=== PATIENT | female | born 1985 | race Caucasian/White ===

== ENCOUNTER 2018-01-09 15:52 | Emergency (ER) | payer SELFPAY ==
[2018-01-09] MEDS ORDERED: NA CHLORIDE 0.9% 1,000 ML ONE (16:12)
--- NOTE | 2018-01-09 16:22 | RAD REPORT ---
EXAM DESCRIPTION: CT - Head Brain Wo Cont - 01/09/2018 4:10 pm CLINICAL HISTORY: SEIZURE COMPARISON: HEAD BRAIN W O CONTRAST dated 01/17/2015 TECHNIQUE: All CT scans are performed using dose optimization technique as appropriate and may inclu de automated exposure control or mA/KV adjustment according to patient size. FINDINGS: No intracranial hemorrhage, hydrocephalus or extra-axial fluid collection.No areas of brai n edema or evidence of midline shift. The paranasal sinuses and mastoids are clear. The calvarium is intact. IMPRESSION: No acute intracranial abnormality.
[2018-01-09 16:39] LABS: Absolute Lymphocytes (CBC) 2.1 K/uL (0.7-4.9); Absolute Monocytes 0.6 K/uL (0.1-1.3); Absolute Neutrophil 7.1 K/uL (1.8-8.0); Basophils % 0.5 % (0-1.3); Eosinophils % 0.4 % (0-4.4); Hematocrit 35.1 % (36.0-45.0); Lymphocytes % 21.1 % (15.3-44.8); MCH 28.5 pg (27.0-35.0); MCV 86.1 fL (80-100); MPV 8.4 fL (7.6-11.3); Monocytes % 5.7 % (3.3-12.3); RBC Red Blood Cell Count 4.07 M/uL (3.86-4.86)
--- NOTE | 2018-01-09 16:43 | EDPHYS ---
Physician Documentation [facility] Name: Sonia Wray Age: 32 yrs Sex: Female : 1985 Arrival Date: 01/09/2018 Time: 15:53 Bed 16 Private MD: ED Physician Bobby Miner HPI: 01/09 15:59 This 32 yrs old Female presents to ER via Ambulatory with complaints of Drug pm1 Abuse and Seizure. 15:59 The patient presents after having a single isolated seizure, the episode(s) was pm1 witnessed, by family, mother. Character of seizure(s): Motor activity: according to EMS report from mother generalized shaking. Seizure onset: just prior to arrival. Context: the seizure(s) was witnessed, by family, mother, occurred at home, occurred while the patient was While smoking cush. Contributing factors: suspected or documented drug use. Seizure Hx: related to prior drug use, cush. Associated injury: The patient did not suffer any apparent associated injury. EMS care: none, because patient refused care from the EMS. Police were present at the seen and the patient was given the option to go to the ER or go to penitentiary. Patient chose to come to the ER. Current symptoms: Currently, the patient is not experiencing any symptoms, the patient feels back to baseline. The patient has experienced similar episodes in the past, multiple times. The patient has not recently seen a physician. 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 - Social history:: Smoking status: Patient/guardian denies using tobacco, Patient uses street drugs, marijuana. - Ebola Screening: : Patient negative for fever greater than or equal to 101.5 degrees Fahrenheit, and additional compatible Ebola Virus Disease symptoms Patient denies exposure to infectious person Patient denies travel to an Ebola-affected area in the 21 days before illness onset. ROS: 16:10 Constitutional: Negative for fever, chills, and weight loss, Eyes: Negative for injury, pm1 pain, redness, and discharge, ENT: Negative for injury, pain, and discharge, Neck: Negative for injury, pain, and swelling, Cardiovascular: Negative for chest pain, palpitations, and edema, Respiratory: Negative for shortness of breath, cough, wheezing, and pleuritic chest pain, Abdomen/GI: Negative for abdominal pain, nausea, vomiting, diarrhea, and constipation, Back: Negative for injury and pain, : Negative for injury, bleeding, discharge, and swelling, MS/Extremity: Negative for injury and deformity, Skin: Negative for injury, rash, and discoloration. 16:10 Neuro: Positive for seizure activity, Negative for altered mental status, dizziness, numbness, tingling, visual changes, weakness. Exam: 16:10 Constitutional: This is a well developed, well nourished patient who is awake, alert, pm1 and in no acute distress. Head/Face: Normocephalic, atraumatic. Eyes: Pupils equal round and reactive to light, extra-ocular motions intact. Lids and lashes normal. Conjunctiva and sclera are non-icteric and not injected. Cornea within normal limits. Periorbital areas with no swelling, redness, or edema. ENT: Nares patent. No nasal discharge, no septal abnormalities noted. Tympanic membranes are normal and external auditory canals are clear. Oropharynx with no redness, swelling, or masses, exudates, or evidence of obstruction, uvula midline. Mucous membranes moist. Neck: Trachea midline, no thyromegaly or masses palpated, and no cervical lymphadenopathy. Supple, full range of motion without nuchal rigidity, or vertebral point tenderness. No Meningismus. Chest/axilla: Normal chest wall appearance and motion. Nontender with no deformity. No lesions are appreciated. Cardiovascular: Regular rate and rhythm with a normal S1 and S2. No gallops, murmurs, or rubs. Normal PMI, no JVD. No pulse deficits. Respiratory: Lungs have equal breath sounds bilaterally, clear to auscultation and percussion. No rales, rhonchi or wheezes noted. No increased work of breathing, no retractions or nasal flaring. Abdomen/GI: Soft, non-tender, with normal bowel sounds. No distension or tympany. No guarding or rebound. No evidence of tenderness throughout. Back: No spinal tenderness. No costovertebral tenderness. Full range of motion. Skin: Warm, dry with normal turgor. Normal color with no rashes, no lesions, and no evidence of cellulitis. MS/ Extremity: Pulses equal, no cyanosis. Neurovascular intact. Full, normal range of motion. 16:10 Neuro: Orientation: is normal, Mentation: is normal, Cranial nerves: CN II- XII are normal as tested, Cerebellar function: normal finger to nose testing, Motor: moves all fours, Gait: is steady, at a normal pace, without difficulty. Vital Signs: 16:01 BP 127 / 96; Pulse 120; Resp 18; Pulse Ox 98% on R/A; Weight 45.36 kg; Height 5 ft. 2 cc3 in. (157.48 cm); Pain 0/10; 16:46 BP 125 / 92; Pulse 79; Resp 18; Pulse Ox 100% on R/A; cc3 16:01 Body Mass Index 18.29 (45.36 kg, 157.48 cm) cc3 MDM: 15:54 Patient medically screened. rn 16:39 Data reviewed: vital signs. Data interpreted: Pulse oximetry: on room air is 98 %. pm1 Interpretation: normal. 16:41 Refusal of service: The patient/guardian displays adequate decision making capability pm1 and despite a detailed discussion of alternatives, benefits, risks, and consequences refuses: Admission to the hospital for further work-up and treatment, Patient does not want to wait for any of the lab results. Patient wants to go home with her mother now. 01/09 15:57 Order name: CBC with Diff; Complete Time: 16:45 pm1 01/09 15:57 Order name: CMP; Complete Time: 17:47 pm1 01/09 15:57 Order name: EKG; Complete Time: 15:57 pm1 01/09 15:57 Order name: UDS pm1 01/09 15:58 Order name: CT Head Brain wo Cont; Complete Time: 16:32 pm1 01/09 15:57 Order name: IV Saline Lock; Complete Time: 16:26 pm1 01/09 15:57 Order name: EKG - Nurse/Tech; Complete Time: 16:27 pm1 01/09 15:57 Order name: Urine Dipstick-Ancillary (obtain specimen); Complete Time: 16:41 pm1 01/09 15:57 Order name: Urine Test (obtain specimen); Complete Time: 16:41 pm1 Administered Medications: Discontinued: NS 0.9% 1000 ml IV at 1000 ml once 16:15 Drug: NS 0.9% 1000 ml Route: IV; Rate: 1000 ml; Site: left antecubital; cc3 Disposition: 17:16 Co-signature as Attending Physician, Bobby Miner MD. rn Disposition: 01/09/18 16:43 Discharged to Home. Impression: Epilepsy and recurrent seizures, Drug abuse - synthetic marijuana. - Condition is Stable. - Discharge Instructions: Cannabis Use Disorder, Seizure, Adult, [id number], What You Need To Know About Illegal Drug Use and Dependence, Youth. - Medication Reconciliation Form, Thank You Letter form. - Follow up: Emergency Department; When: As needed; Reason: Worsening of condition. Follow up: Private Physician; When: 2 - 3 days; Reason: Recheck today's complaints, Continuance of care, Re-evaluation by your physician. - Problem is new. - Symptoms have improved. Signatures: Dispatcher [employer] EDNY Bobby Miner MD MD rn Smirch, Shelby, RN RN ss Armand Purdy, DOOR WORKER DOOR WORKER pm1 Radha Price cc3 Corrections: (The following items were deleted from the chart) 16:49 16:43 01/09/2018 16:43 Discharged to Home. Impression: Epilepsy and recurrent seizures; ss Drug abuse - synthetic marijuana. Condition is Stable. Forms are Medication Reconciliation Form, Thank You Letter, Antibiotic Education, Prescription Opioid Use. Follow up: Emergency Department; When: As needed; Reason: Worsening of condition. Follow up: Private Physician; When: 2 - 3 days; Reason: Recheck today's complaints, Continuance of care, Re-evaluation by your physician. Problem is new. Symptoms have improved. pm1
--- NOTE | 2018-01-09 16:43 | ER ---
Nurse's Notes [facility] Name: Sonia Wray Age: 32 yrs Sex: Female : 1985 Arrival Date: 01/09/2018 Time: 15:53 Bed 16 Private MD: Diagnosis: Epilepsy and recurrent seizures;Drug abuse - synthetic marijuana Presentation: 01/09 15:54 Presenting complaint: EMS states: family member called EMS for pt who was known to have cc3 used synthetic marijuana and per family report had an incident of new onset seizure; V/S stable and pt was A\\T\\Ox4 on arrival;. Transition of care: patient was not received from another setting of care. Onset of symptoms was January 09, 2018. Risk Assessment: Do you want to hurt yourself or someone else? Patient reports no desire to harm self or others. Initial Sepsis Screen: Does the patient meet any 2 criteria? No. Patient's initial sepsis screen is negative. Does the patient have a suspected source of infection? No. Patient's initial sepsis screen is negative. Care prior to arrival: None. 15:54 Method Of Arrival: Ambulatory cc3 15:54 Acuity: JUDITH 3 cc3 Triage Assessment: 15:58 General: Appears in no apparent distress. uncomfortable, slender, unkempt, Behavior is cc3 agitated, crying, uncooperative. General: states" i dont care". Pain: Denies pain. EENT: No signs and/or symptoms were reported regarding the EENT system. Neuro: Level of Consciousness is awake, alert, obeys commands, Oriented to person, place, time, situation, Appropriate for age. Cardiovascular: Heart tones S1 S2 Capillary refill < 3 seconds Patient's skin is warm and dry. Rhythm is sinus tachycardia. Respiratory: Airway is patent Respiratory effort is even, unlabored, Respiratory pattern is regular, symmetrical. GI: No signs and/or symptoms were reported involving the gastrointestinal system. : No signs and/or symptoms were reported regarding the genitourinary system. Derm: No signs and/or symptoms reported regarding the dermatologic system. Musculoskeletal: No signs and/or symptoms reported regarding the musculoskeletal system. MANAGER PRIVATE: 16:04 LMP 01/09/2018 cc3 Historical: - Allergies: 15:57 Unable to obtain; cc3 - Home Meds: 15:57 Unable to obtain [Active]; cc3 - PMHx: 15:57 Unable to obtain; cc3 - PSHx: 15:57 Unable to obtain; cc3 - Immunization history:: Adult Immunizations unknown. - Social history:: Smoking status: Patient/guardian denies using tobacco, Patient uses street drugs, marijuana. - Ebola Screening: : Patient negative for fever greater than or equal to 101.5 degrees Fahrenheit, and additional compatible Ebola Virus Disease symptoms Patient denies exposure to infectious person Patient denies travel to an Ebola-affected area in the 21 days before illness onset. Screenin:58 Abuse screen: Denies threats or abuse. Denies injuries from another. Nutritional cc3 screening: No deficits noted. Tuberculosis screening: No symptoms or risk factors identified. Fall Risk None identified. Assessment: 16:25 General: see triage assessment. cc3 16:47 Reassessment: Pt not willing to stay for rest of test results. Pt is upset, tearful ss stating, "I just don't want to even fuing being here right now!". Vital Signs: 16:01 BP 127 / 96; Pulse 120; Resp 18; Pulse Ox 98% on R/A; Weight 45.36 kg; Height 5 ft. 2 cc3 in. (157.48 cm); Pain 0/10; 16:46 BP 125 / 92; Pulse 79; Resp 18; Pulse Ox 100% on R/A; cc3 16:01 Body Mass Index 18.29 (45.36 kg, 157.48 cm) cc3 ED Course: 15:53 Patient arrived in ED. cc3 15:54 Bobby Miner MD is Attending Physician. rn 15:55 Armand Purdy NP is PHCP. pm1 15:57 Triage completed. cc3 16:00 Arm band placed on right wrist. cc3 16:01 Patient has correct armband on for positive identification. Bed in low position. Call cc3 light in reach. 16:02 Radha Price is Primary Nurse. cc3 16:10 CT Head Brain wo Cont In Process Unspecified. EDMS 16:15 Inserted saline lock: 22 gauge in left antecubital area, using aseptic technique. Blood cc3 collected. 16:26 EKG done, by survey technician. reviewed by Armand Purdy NP. sm3 16:47 No provider procedures requiring assistance completed. Patient did not have IV access ss during this emergency room visit. Administered Medications: Discontinued: NS 0.9% 1000 ml IV at 1000 ml once 16:15 Drug: NS 0.9% 1000 ml Route: IV; Rate: 1000 ml; Site: left antecubital; cc3 Outcome: 16:43 Discharge ordered by MD. pm1 16:47 Discharged to home ambulatory. ss 16:47 Condition: good 16:47 Discharge instructions given to patient, Instructed on discharge instructions, follow up and referral plans. Demonstrated understanding of instructions, follow-up care. 16:49 Patient left the ED. ss Signatures: Dispatcher [employer] EDMS Bobby Miner MD MD rn Smirch, Shelby, RN RN ss Marinas, Patrick, BRAD HYPERION ADMINISTRATOR pm1 Delaney Evans 3 Radha Price cc3
[2018-01-09 16:48] LABS: ALT/SGPT 80 U/L (12-78); AST/SGOT 59 U/L (15-37); Albumin 3.3 g/dL (3.4-5.0); Alkaline Phosphatase 104 U/L (45-117); BUN Blood Urea Nitrogen 11 mg/dL (7-18); Bicarbonate 26 mmol/L (21-32); Bilirubin Total 0.3 mg/dL (0.2-1.0); Glucose Level 103 mg/dL (74-106); Potassium 3.7 mmol/L (3.5-5.1); Protein, Total 6.8 g/dL (6.4-8.2); Sodium Level 140 mmol/L (136-145)
[2018-01-09 17:47] LABS: Barbiturates NEGATIVE (NEGATIVE); Benzodiazepines NEGATIVE (NEGATIVE); Cocaine NEGATIVE (NEGATIVE); METHAMPHETAM NEGATIVE (NEGATIVE); Methadone NEGATIVE (NEGATIVE); Opiates NEGATIVE (NEGATIVE); Phencyclidine NEGATIVE (NEGATIVE); THC Cannibis POSITIVE (NEGATIVE)
--- NOTE | 2018-01-10 07:21 | EKG ---
Test Date: 2018-01-09 Test Time: 16:16:26 Film Library Clerk: JOSE CARLOS MEASUREMENT RESULTS: Intervals: Rate: 85 AR: 128 QRSD: 80 QT: 338 QTc: 402 [place]: P: 81 AR: 128 QRS: 81 T: 44 INTERPRETIVE STATEMENTS: Normal sinus rhythm Normal ECG Compared to ECG 01/17/2015 07:59:59 ST (T wave) deviation no longer present Possible ischemia no longer present Electronically Signed On 01-10-18 07:20:25 CDT by Vadim Gallegos
== END 2018-01-09 16:49 | disposition home or self-care (01) ==
LOC: ER 15:52
DX: F12.10 Cannabis abuse, uncomplicated (principal); Z72.0 Tobacco use
CPT/HCPCS: 36415; 70450; 80053; 80307; 85025; 93005; 99284; J7030

== ENCOUNTER 2023-01-15 11:17 | Emergency (ER) | payer SELFPAY ==
[2023-01-15] MEDS ORDERED: ONDANSETRON 4 MG/2 ML VIAL ONE (11:51)
[2023-01-15] MEDS ORDERED: NA CHLORIDE 0.9% 1,000 ML ONE (11:51)
[2023-01-15] MEDS ORDERED: MORPHINE 4 MG/ML SYR ONE (11:51)
[2023-01-15 12:04] LABS: Specific Gravity 1.016 (1.005-1.030)
[2023-01-15 12:05] LABS: Absolute Lymphocytes (CBC) 4.2 K/uL (0.7-4.9); Hematocrit 40.2 % (36.0-45.0); Lymphocytes % 36.4 % (15.3-44.8); MPV 9.1 fL (7.6-11.3); Platelets 303 thou/uL (152-406); RBC Red Blood Cell Count 4.84 M/uL (3.86-4.86)
[2023-01-15 12:08] LABS: Specific Gravity 1.016 (1.005-1.030); Urine Bacteria >50 /HPF (<20); Urine Bilirubin NEGATIVE (Negative); Urine Blood Negative (Negative); Urine Clarity Extremely Turbid (Clear); Urine Color Yellow (Yellow); Urine Glucose NEGATIVE (Negative); Urine Mucus Slight /HPF (None Seen); Urine Protein TRACE (Negative); Urine RBC <5 /HPF (None Seen); Urine Urobilinogen Normal (Normal)
--- NOTE | 2023-01-15 12:20 | RAD REPORT ---
EXAM DESCRIPTION: Sunitha Single View01/15/2023 11:59 am CLINICAL HISTORY: CHEST PAIN COMPARISON: 04/30/2013 TECHNIQUE: Portable AP view of the chest. FINDINGS: The lungs are clear. No pneumothorax or effusion. The cardiomediastinal contours are unre markable. IMPRESSION: No acute cardiopulmonary process.
[2023-01-15 12:23] LABS: Bilirubin Direct 0.2 mg/dL (0-0.2); Bilirubin Indirect, Calculated 0.3 mg/dL (0.2-0.8); Bilirubin Total 0.5 mg/dL (0.2-1.0); Magnesium 1.9 mg/dL (1.6-2.4); Potassium 3.3 mEq/L (3.5-5.1); Protein, Total 7.8 g/dL (6.4-8.2); Troponin High Sensitivity 3.9 pg/mL (<58.9)
[2023-01-15 12:30] LABS: Protime INR 1.05
[2023-01-15] MEDS ORDERED: KETOROLAC 30 MG/ML INJ ONE (13:02)
[2023-01-15] MEDS ORDERED: DIAZEPAM 10 MG/2 ML INJ SYRINGE ONE (13:02)
--- NOTE | 2023-01-15 14:16 | RAD REPORT ---
EXAM DESCRIPTION: CT - Chest For Pe Angio - 01/15/2023 1:47 pm CLINICAL HISTORY: CHEST PAIN COMPARISON: No comparisons TECHNIQUE: Thin axial CT images of the chest were obtained following administration of 90 mL Isovue 370 IV contrast. Multiplanar reconstructions, and maximum intensity projection reconstructions were g enerated and reviewed. Exam utilizes a protocol for optimal evaluation of pulmonary arterial tree. All CT scans are performed using dose optimization technique as appropriate and may include automated exposure control or mA/KV adjustment according to patient size. FINDINGS: Pulmonary arteries are normal. No emboli or other suspicious finding. No acute or signific ant aorta findings. No mass or infiltrate in the lung parenchyma. Exclusion of the posterior costophrenic angles bilatera lly limits evaluation. Triangular subpleural right middle lobe 6 millimeter nodule on axial image 43. No pleural thickening or pleural effusion. No pneumothorax. Mild cardiomegaly. No abnormal mediastinal or hilar masses or lymphadenopathy seen. No chest wall mas s or abnormal axilliary lymphadenopathy. IMPRESSION: No evidence of acute central pulmonary emboli. No other acute findings. 6 millimeter right middle lobe nodule is probably benign given size and morphology.
[2023-01-15] MEDS ORDERED: POTASSIUM 25 MEQ EFFERV TAB ONE (14:49)
[2023-01-15] MEDS ORDERED: BISACODYL 10 MG RECTAL SUPP ONE ×2 (14:50→16:00)
--- NOTE | 2023-01-15 15:38 | EDPHYS ---
Physician Documentation [facility] Name: Sonia Wray Age: 37 yrs Sex: Female : 1985 Arrival Date: 01/15/2023 Time: 11:17 Bed 13 Private MD: Ilya Montalvo HPI: 01/15 11:40 This 37 yrs old Female presents to ER via Ambulatory with complaints of Left rib pain. 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 - Social history:: Smoking status: Patient reports the use of cigarette tobacco products, smokes one pack cigarettes per day. Reported history of juuling and/or vaping. ROS: 11:45 Constitutional: Negative for body aches, chills, fever, poor PO intake. cp 11:45 Eyes: Negative for injury, pain, redness, and discharge. cp 11:45 Cardiovascular: Positive for chest pain, of the left lateral lower chest, Negative for edema, palpitations. 11:45 Respiratory: Positive for cough, Negative for sputum production, wheezing. Exam: 11:50 Constitutional: The patient appears in no acute distress, alert, awake, cp non-diaphoretic, non-toxic, well developed, well nourished, in obvious pain, uncomfortable. 11:50 Head/Face: Normocephalic, atraumatic. cp 11:50 Eyes: Periorbital structures: appear normal, Conjunctiva: normal, no exudate, no cp injection, Sclera: no appreciated abnormality, Lids and lashes: appear normal, bilaterally. 11:50 ENT: External ear(s): are unremarkable, Nose: is normal, Mouth: Lips: moist, Oral mucosa: pink and intact, moist, Posterior pharynx: is normal, airway is patent, no erythema, no exudate. 11:50 Neck: C-spine: vertebral tenderness, is not appreciated, crepitus, is not appreciated, cp ROM/movement: is normal, is supple, without pain, no range of motions limitations, no nuchal rigidity. 11:50 Chest/axilla: Inspection: normal, Palpation: crepitus, is not appreciated, tenderness, that is moderate, of the left lateral lower chest. 11:50 Cardiovascular: Rate: normal, Rhythm: regular, Edema: is not appreciated, JVD: is not appreciated. 11:50 Respiratory: the patient does not display signs of respiratory distress, Respirations: normal, no use of accessory muscles, no retractions, labored breathing, is not present, Breath sounds: are clear throughout, no decreased breath sounds, no stridor, no wheezing. 11:50 Abdomen/GI: Inspection: abdomen appears normal, Bowel sounds: active, all quadrants, cp Palpation: soft, in all quadrants, mild abdominal tenderness, in the left upper quadrant, rebound tenderness, is not appreciated, involuntary guarding, is not appreciated. 11:50 Back: CVA tenderness, is absent. 11:50 Skin: cellulitis, is not appreciated, no rash present. 11:50 Neuro: Orientation: to person, place \T\ time. Mentation: is normal, Motor: moves all fours, strength is normal. 11:55 ECG was reviewed by the Attending Physician. Vital Signs: 11:30 BP 127 / 52; Pulse 64; Resp 18; Pulse Ox 100% on R/A; ld1 11:30 BP 127 / 52; Pulse 62; Resp 24; Temp 98.3; Pulse Ox 100% ; Weight 52.16 kg; Height 5 jl7 ft. 2 in. ; Pain 10/10; 13:21 BP 116 / 61; Pulse 59; Resp 18; Pulse Ox 100% on R/A; ld1 14:17 BP 90 / 45; Pulse 41; Resp 18; Pulse Ox 100% on R/A; ld1 15:01 BP 92 / 50; Pulse 43; Resp 18; Pulse Ox 99% on R/A; ld1 11:30 Body Mass Index 21.03 (52.16 kg, 157.48 cm) [facility] 11:30 Pain Scale: Adult jl7 MDM: 11:30 Patient medically screened. 15:36 Data reviewed: vital signs, nurses notes, lab test result(s), EKG, radiologic studies, cp CT scan, plain films. 15:36 Differential diagnosis: abnormal EKG, acute myocardial infarction, acute pericarditis, cp chest wall pain, costochondritis, pericarditis, pleurisy, pneumonia, pneumothorax, pulmonary embolus, stable angina, unstable angina. I considered the following discharge prescriptions or medication management in the emergency department Medications were administered in the Emergency Department. See MAR. Counseling: I had a detailed discussion with the patient and/or guardian regarding the historical points, exam findings, and any diagnostic results supporting the discharge/admit diagnosis, lab results, radiology results, to return to the emergency department if symptoms worsen or persist or if there are any questions or concerns that arise at home. Response to treatment: the patient's symptoms have markedly improved after treatment, and as a result, I will discharge patient. Special discussion: Based on the patient's history, exam, and Dx evaluation, there is no indication for emergent intervention or inpatient Tx. It is understood by the patient/guardian that if the Sx's persist or worsen they need to return immediately for re-evaluation. 01/15 11:36 Order name: Basic Metabolic Panel; Complete Time: 12:24 01/15 12:24 Interpretation: Normal except: K 3.3; CL 108; GFR 86. cp 01/15 11:36 Order name: CBC with Diff; Complete Time: 12:24 cp 01/15 12:24 Interpretation: Normal except: WBC 11.60; RDW 17.2. cp 01/15 11:36 Order name: D-Dimer; Complete Time: 14:27 cp 01/15 11:36 Order name: LFT's; Complete Time: 12:24 cp 01/15 12:24 Interpretation: Normal except: GLOB 3.8. cp 01/15 11:36 Order name: Magnesium; Complete Time: 12:24 cp 01/15 11:36 Order name: PT-INR; Complete Time: 14:27 cp 01/15 11:36 Order name: Troponin HS; Complete Time: 12:24 cp 01/15 11:36 Order name: PREGU; Complete Time: 12:24 cp 01/15 11:36 Order name: Urinalysis W/Microscopic; Complete Time: 12:24 cp 01/15 12:25 Interpretation: Normal except: UKET 1+; UPROT TRACE; UBACT >50; SQEPI 20-50. cp 01/15 11:36 Order name: XRAY Chest (1 view); Complete Time: 12:24 cp 01/15 12:42 Order name: CT Chest For PE Angio; Complete Time: 14:27 cp 01/15 14:28 Interpretation: Report reviewed. 01/15 11:36 Order name: EKG; Complete Time: 11:37 cp 01/15 11:36 Order name: Cardiac monitoring; Complete Time: 11:38 cp 01/15 11:36 Order name: EKG - Nurse/Tech; Complete Time: 11:54 cp 01/15 11:36 Order name: IV Saline Lock; Complete Time: 11:54 cp 01/15 11:36 Order name: Labs collected and sent; Complete Time: 11:54 cp 01/15 11:36 Order name: O2 Per Protocol; Complete Time: 11:38 cp 01/15 11:36 Order name: O2 Sat Monitoring; Complete Time: 11:38 EC:55 Rate is 63 beats/min. Rhythm is regular. NE interval is shortened at 104 msec. QRS cp interval is normal. QT interval is normal. T waves are Inverted in lead aVR. Interpreted by me. Reviewed by me. Administered Medications: 11:54 Drug: NS 0.9% IV 1000 ml Route: IV; Rate: 1 bolus; Site: right antecubital; ld1 11:54 Drug: morphine IVP or IV 4 mg Route: IVP; Infused Over: 4 mins; Site: right antecubital;ld1 11:54 Drug: Ondansetron IVP 4 mg Route: IVP; Site: right antecubital; ld1 12:58 Drug: Ketorolac IVP 15 mg Route: IVP; Site: right antecubital; ld1 12:58 Drug: Diazepam IVP 2 mg Route: IVP; Site: right antecubital; ld1 14:42 Drug: Potassium PO Effervescent Tablet 50 mEq Route: PO; ld1 Disposition Summary: 01/15/23 15:37 Discharge Ordered Location: Home cp Problem: new cp Symptoms: have improved cp Condition: Stable cp Diagnosis - Chest pain, unspecified cp Followup: cp - With: Private Physician - When: 2 - 3 days - Reason: Recheck today's complaints Discharge Instructions: - Discharge Summary Sheet cp - Nonspecific Chest Pain, Adult cp Forms: - Medication Reconciliation Form cp - Thank You Letter cp - Antibiotic Education cp - Prescription Opioid Use cp - Patient Portal Instructions cp - Leadership Thank You Letter cp Prescriptions: - Cyclobenzaprine 10 mg Oral Tablet - take 1 tablet by ORAL route every 8 hours As needed; 30 tablet; Refills: 0, cp Product Selection Permitted - Diclofenac Sodium 75 mg Oral tablet,delayed release (DR/EC) - take 1 tablet by ORAL route 2 times per day; 20 tablet; Refills: 0, Product cp Selection Permitted Signatures: Dispatcher [employer] EDMS Ilya Dominguez PA PA cp Leal, Jahala RN RN jl7 Jessie Chirinos RN RN ld1 Corrections: (The following items were deleted from the chart) 11:32 11:32 Allergies: Unable to obtain; jl7 jl7 15:39 15:37 Pleurisy cp cp 01/16 14:45 08 11:50 Constitutional: The patient appears in no acute distress, alert, awake, cp non-diaphoretic, non-toxic, well developed, well nourished, cp
--- NOTE | 2023-01-15 15:38 | ER ---
Nurse's Notes [facility] Name: Sonia Wray Age: 37 yrs Sex: Female : 1985 Arrival Date: 01/15/2023 Time: 11:17 Bed 13 Private MD: Diagnosis: Chest pain, unspecified Presentation: 01/15 11:30 Chief complaint: Patient states: Left rib pain, worse with deep breath, recent jl7 non-productive cough, denies fever. Coronavirus screen: Client presents with at least one sign or symptom that may indicate coronavirus-19. Ebola Screen: No symptoms or risks identified at this time. Initial Sepsis Screen: Does the patient meet any 2 criteria? No. Patient's initial sepsis screen is negative. Does the patient have a suspected source of infection? No. Patient's initial sepsis screen is negative. Risk Assessment: Do you want to hurt yourself or someone else? Patient reports no desire to harm self or others. Onset of symptoms was January 15, 2023. 11:30 Method Of Arrival: [facility] 11:30 Acuity: JUDITH 3 jl7 Triage Assessment: 11:32 General: Appears in no apparent distress. uncomfortable, Behavior is cooperative, jl7 anxious. Pain: Complains of pain in left lateral posterior chest and left lateral anterior chest Pain currently is 10 out of 10 on a pain scale. 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 - Social history:: Smoking status: Patient reports the use of cigarette tobacco products, smokes one pack cigarettes per day. Reported history of juuling and/or vaping. Screenin:[facility] ED Fall Risk Assessment (Adult) History of falling in the last 3 months, ld1 including since admission No falls in past 3 months (0 pts). Abuse screen: Denies threats or abuse. Denies injuries from another. Nutritional screening: No deficits noted. Tuberculosis screening: No symptoms or risk factors identified. Assessment: 11:55 General: Appears in no apparent distress. uncomfortable, Behavior is anxious, crying, ld1 fussy. Pain: Complains of pain in left lateral anterior chest and left lateral posterior chest and chest Pain does not radiate. Pain currently is 10 out of 10 on a pain scale. Quality of pain is described as sharp, shooting, throbbing, Pain began suddenly. Neuro: Level of Consciousness is awake, alert, obeys commands, Oriented to person, place, time, situation. Cardiovascular: Capillary refill < 3 seconds Patient's skin is warm and dry. Rhythm is sinus rhythm. Respiratory: Airway is patent Respiratory effort is even, unlabored. GI: Abdomen is flat, non-distended. : No signs and/or symptoms were reported regarding the genitourinary system. EENT: No signs and/or symptoms were reported regarding the EENT system. Derm: No signs and/or symptoms reported regarding the dermatologic system. Musculoskeletal: No signs and/or symptoms reported regarding the musculoskeletal system. Vital Signs: 11:30 BP 127 / 52; Pulse 64; Resp 18; Pulse Ox 100% on R/A; ld1 11:30 BP 127 / 52; Pulse 62; Resp 24; Temp 98.3; Pulse Ox 100% ; Weight 52.16 kg; Height 5 jl7 ft. 2 in. ; Pain 10/10; 13:21 BP 116 / 61; Pulse 59; Resp 18; Pulse Ox 100% on R/A; ld1 14:17 BP 90 / 45; Pulse 41; Resp 18; Pulse Ox 100% on R/A; ld1 15:01 BP 92 / 50; Pulse 43; Resp 18; Pulse Ox 99% on R/A; ld1 11:30 Body Mass Index 21.03 (52.16 kg, 157.48 cm) jl7 11:30 Pain Scale: Adult jl7 ED Course: 11:17 Patient arrived in ED. rg4 11:20 Ilya Dominguez PA is PHCP. cp 11:20 Ilya Gama MD is Attending Physician. cp 11:29 Jessie Chirinos, KELLY is Primary Nurse. ld1 11:32 Triage completed. jl7 11:32 Arm band placed on right wrist. jl7 11:54 Urinalysis W/Microscopic Sent. ld1 11:54 PREGU Sent. ld1 11:55 Patient has correct armband on for positive identification. Placed in gown. Bed in low ld1 position. Call light in reach. Side rails up X2. media monitor on. Pulse ox on. NIBP on. Door closed. Noise minimized. Warm blanket given. 11:55 No provider procedures requiring assistance completed. Inserted saline lock: 20 gauge ld1 in right antecubital area, using aseptic technique. Blood collected. 12:00 XRAY Chest (1 view) In Process Unspecified. EDMS 13:48 CT Chest For PE Angio In Process Unspecified. EDMS 15:58 IV discontinued, intact, bleeding controlled, No redness/swelling at site. ld1 Administered Medications: 11:54 Drug: NS 0.9% IV 1000 ml Route: IV; Rate: 1 bolus; Site: right antecubital; ld1 11:54 Drug: morphine IVP or IV 4 mg Route: IVP; Infused Over: 4 mins; Site: right antecubital;ld1 11:54 Drug: Ondansetron IVP 4 mg Route: IVP; Site: right antecubital; ld1 12:58 Drug: Ketorolac IVP 15 mg Route: IVP; Site: right antecubital; ld1 12:58 Drug: Diazepam IVP 2 mg Route: IVP; Site: right antecubital; ld1 14:42 Drug: Potassium PO Effervescent Tablet 50 mEq Route: PO; ld1 Medication: 11:55 VIS not applicable for this client. ld1 Outcome: 15:37 Discharge ordered by MD. cp 15:58 Discharged to home ambulatory, with family. ld1 15:58 Condition: stable 15:58 Discharge instructions given to patient, family, Instructed on discharge instructions, follow up and referral plans. medication usage, Demonstrated understanding of instructions, follow-up care, medications, Prescriptions given X 2. 15:58 Patient left the ED. ld1 Signatures: Dispatcher [employer] EDMS Ilya Dominguez PA PA cp Garcia, Rubi rg4 Melissa Arthur RN RN jl7 Jessie Chirinos RN RN ld1 Corrections: (The following items were deleted from the chart) 11:32 11:32 Allergies: Unable to obtain; carson byrd
[2023-01-15 16:12] VITALS: TEMP 98.3
[2023-01-15 16:17] VITALS: BP 92/50; O2SAT 99
--- NOTE | 2023-01-16 12:15 | EKG ---
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
== END 2023-01-15 15:58 | disposition home or self-care (01) ==
LOC: ER 11:17
DX: R07.89 Other chest pain (principal); F17.210 Nicotine dependence, cigarettes, uncomplicated
CPT/HCPCS: 36415; 71045; 71275; 80048; 80076; 81001; 81025; 83735; 84484; 85025; 85379; 85610; 93005; 96374; 96375; 99285; J2405; J3360; J7030; Q9967